=== PATIENT | male | born 1990 | race African-American/Black ===

== ENCOUNTER 2017-02-01 06:12 | Emergency (ER) | payer OTHER ==
[~2017-02-01] VITALS: Ht 180.3 cm; Wt 87.3 kg
[2017-02-01] MEDS ORDERED: IBUP-1022 PO (07:38)
[2017-02-01] MEDS ORDERED: IBUPROFEN 600 MG TAB PO ONE (07:45)
[2017-02-01 07:48] VITALS: BP 123/69
== END 2017-02-01 07:51 | disposition home or self-care (01) ==
LOC: M ED 06:12
DX: S10.93XA Contusion of unspecified part of neck, initial encounter (principal); W50.0XXA Accidental hit or strike by another person, initial encounter; Y92.9 Unspecified place or not applicable; Y93.9 Activity, unspecified; Y99.9 Unspecified external cause status